=== PATIENT | female | born 1995 | race Caucasian/White ===

== ENCOUNTER 2018-01-19 19:46 | Emergency (ER) | payer MEDICAID, OTHER ==
--- NOTE | 2018-01-20 02:41 | EDM.PDOC ---
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 She states that part of the process is dipping a tray of dishes into a "leadlighter solution". She had some of this on her hand or glove and then rubbed her left eye. Did develop some mild burning discomfort of the RI after doing this. She states she flushd and irrigated the eye immediately with water. This occurred about 2 hours ago she's had no further I discomfort. She was advised to have this checked out due to the potentially caustic nature of the leadlighter solution. She does not wear contacts. She was not wearing eye protection at the time. - Related Data Allergies Allergy/AdvReac Type Severity Reaction Status Date / Time No Known Allergies Allergy Verified 10/27/15 21:01 Past Medical History - Past Health History Medical/Surgical History: Denies Medical/Surgical History ED ROS ENT - Review of Systems Review Of Systems: See Below Constitutional: Reports: No Symptoms HEENT: Reports: Eye Pain Respiratory: Denies: Shortness of Breath (Gone) Cardiovascular: Denies: Chest Pain GI/Abdominal: Denies: Nausea, Vomiting Musculoskeletal: Reports: No Symptoms Skin: Reports: Other (No burning discomfort of the periorbital tissue). Denies : Rash, Erythema Neurological: Denies: Dizziness, Headache ED EXAM, ENT - Physical Exam Exam: See Below General Appearance: Alert, No Apparent Distress Eye Exam: Bilateral Eye: PERRL (No conjunctival injection, no visible corneal injury) Ears: Normal External Exam Nose: Normal Inspection Mouth/Throat: Normal Inspection Head: Atraumatic Neck: Supple Respiratory/Chest: No Respiratory Distress Skin: Warm, Dry, Normal Color Course - Re-Assessments/Exams Free Text/Narrative Re-Assessment/Exam: 01/20/18 02:40 Her eye looked really good at time of exam, we did further irrigate with 250 mL normal saline. Departure - Departure Time of Disposition: 22:00 Disposition: Home, Self-Care 01 Clinical Impression: Chemical exposure of eye - Discharge Information Referrals: PCP,None [Primary Care Provider] -
== END 2018-01-20 01:18 | disposition home or self-care (01) ==
LOC: JD.ED 19:46
DX: Z77.098 Contact with and (suspected) exposure to other hazardous, chiefly nonmedicinal, chemicals (principal)
CPT/HCPCS: 99283

== ENCOUNTER 2020-11-06 01:17 | Inpatient (IN) | payer BC ==
[2020-11-06] MEDS ORDERED: Nalbuphine 10 MG/1 ML Vial IVPUSH PRN (02:13)
[2020-11-06] MEDS ORDERED: Sodium Chloride 0.9% 10 ML Syringe FLUSH PRN (02:13)
[2020-11-06] MEDS ORDERED: Oxytocin/Lactated Ringers 10 UNIT/1,000 ML BAG IV SCH (02:15)
[2020-11-06] MEDS: Calcium Carbonate 500 MG Tab.Chew PO PRN ×2 (04:25→16:16)
[2020-11-06] MEDS: Lactated Ringers 1,000 ML IV SCH ×4 (05:52→15:12)
[2020-11-06] MEDS ORDERED: ePHEDrine 50 MG/ML SDV IVPUSH PRN (06:16)
[2020-11-06] MEDS ORDERED: diphenhydrAMINE 50 MG/ML SDV IVPUSH PRN (06:16)
[2020-11-06] MEDS ORDERED: fentaNYL 100 MCG/2 ML SDV ONE (06:23)
--- NOTE | 2020-11-06 06:24 | PCM.PREANE ---
Preanesthetic Assessment - Procedure Proposed Procedure: Continuous labor epidural - Anesthesia/Transfusion/Family Hx Anesthesia History: Prior Anesthesia Without Reaction Transfusion History: No Prior Transfusion(s) - Review of Systems General: No Symptoms Pulmonary: No Symptoms Cardiovascular: No Symptoms Gastrointestinal: No Symptoms Neurological: No Symptoms Other: Reports: None - Physical Assessment Vital Signs: Last Vital Signs Temp 97.8 F 11/06/20 01:22 Pulse 89 11/06/20 01:22 Resp 16 11/06/20 01:22 BP 127/75 11/06/20 01:22 Pulse Ox 99 11/06/20 01:22 Height: 1.5 m Weight: 68.946 kg ASA Class: 2 Mental Status: Alert & Oriented x3 Airway Class: Mallampati = 2 Dentition: Reports: Normal Dentition Thyro-Mental Finger Breadths: 3 Mouth Opening Finger Breadths: 3 ROM/Head Extension: Full Lungs: Clear to Auscultation, Normal Respiratory Effort Cardiovascular: Regular Rate, Regular Rhythm - Lab Values: Laboratory Last Values WBC 16.98 K/mm3 (3.98-10.04) H 11/06/20 02:30 RBC 3.87 M/mm3 (3.98-5.22) L 11/06/20 02:30 Hgb 11.4 gm/dl (11.2-15.7) 11/06/20 02:30 Hct 34.7 % (34.1-44.9) 11/06/20 02:30 MCV 89.7 fl (79.4-94.8) 11/06/20 02:30 MCH 29.5 pg (25.6-32.2) 11/06/20 02:30 MCHC 32.9 g/dl (32.2-35.5) 11/06/20 02:30 RDW Std Deviation 42.5 fL (36.4-46.3) 11/06/20 02:30 Plt Count 210 K/mm3 (182-369) 11/06/20 02:30 MPV 11.1 fl (9.4-12.3) 11/06/20 02:30 Neut % (Auto) 72.3 % (34.0-71.1) H 11/06/20 02:30 Lymph % (Auto) 19.4 % (19.3-51.7) 11/06/20 02:30 [place] % (Auto) 7.6 % (4.7-12.5) 11/06/20 02:30 Eos % (Auto) 0.2 (0.7-5.8) L 11/06/20 02:30 Baso % (Auto) 0.1 % (0.1-1.2) 11/06/20 02:30 Neut # (Auto) 12.26 K/mm3 (1.56-6.13) H 11/06/20 02:30 Lymph # (Auto) 3.30 K/mm3 (1.18-3.74) 11/06/20 02:30 [place] # (Auto) 1.29 K/mm3 (0.24-0.36) H 11/06/20 02:30 Eos # (Auto) 0.04 K/mm3 (0.04-0.36) 11/06/20 02:30 Baso # (Auto) 0.02 K/mm3 (0.01-0.08) 11/06/20 02:30 SARS-CoV-2 RNA (ERIBERTO) Negative (NEGATIVE) 11/06/20 02:33 - Allergies Allergies/Adverse Reactions: Allergies Allergy/AdvReac Type Severity Reaction Status Date / Time No Known Allergies Allergy Verified 01/20/18 03:17 - Acknowledgements Anesthesia Type Planned: Epidural Pt an Appropriate Candidate for the Planned Anesthesia: Yes Alternatives and Risks of Anesthesia Discussed w Pt/Guardian: Yes Pt/Guardian Understands and Agrees with Anesthesia Plan: Yes PreAnesthesia Questionnaire - Past Health History Medical/Surgical History: Denies Medical/Surgical History HEENT History: Reports: Other (See Below) Other HEENT History: Pt wears glasses Cardiovascular History: Reports: None Respiratory History: Reports: None Gastrointestinal History: Reports: None Genitourinary History: Reports: None 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 Other OB/BYN History: SAB 08/2019 Musculoskeletal History: Reports: None Neurological History: Reports: None Psychiatric History: Reports: None Endocrine/Metabolic History: Reports: None Hematologic History: Reports: None Immunologic History: Reports: None Oncologic (Cancer) History: Reports: None Dermatologic History: Reports: None - Infectious Disease History Infectious Disease History: Reports: None - Past Surgical History Head Surgeries/Procedures: Reports: None HEENT Surgical History: Reports: Tonsillectomy - SUBSTANCE USE Tobacco Use Status *Q: Former Tobacco User Tobacco Use Within Last Twelve Months: Cigarettes Recreational Drug Use History: No - HOME MEDS Home Medications: Home Meds Pnv No.95/Ferrous Fum/Folic AC [ Vitamin Tablet] 1 each PO DAILY 11/06/20 [History] - CURRENT (IN HOUSE) MEDS Current Meds: Current Medications Calcium Carbonate/Glycine (Calcium Carbonate 500 Mg Tab.Chew) 1,000 mg PO Q2H PRN PRN Reason: Indigestion Last Admin: 11/06/20 04:25 Dose: 1,000 mg Documented by: Diphenhydramine HCl (Diphenhydramine 50 Mg/Ml Sdv) 25 mg IVPUSH Q6H PRN PRN Reason: pruritis Ephedrine Sulfate (Ephedrine 50 Mg/Ml Sdv) 5 mg IVPUSH ASDIRECTED PRN PRN Reason: Hypotension Fentanyl (Fentanyl 100 Mcg/2 Ml Sdv) 100 mcg EPIDUR Q3H PRN PRN Reason: Pain Fentanyl/Bupivacaine HCl (Bupivacaine/Fentanyl/Ns 100 Ml Bag) 100 ml EPIDUR ASDIRECTED PRN PRN Reason: Pain Lactated Ringer's (Ringers, Lactated) 1,000 mls @ 100 mls/hr IV ASDIRECTED NANCY Last Admin: 11/06/20 05:52 Dose: 999 mls/hr Documented by: Oxytocin/Lactated Ringer's (Pitocin In Lr 10 Units/1,000 Ml) 10 unit in 1,000 mls @ 500 mls/hr IV .CONTINUOUS NANCY Nalbuphine HCl (Nalbuphine 10 Mg/1 Ml Vial) 10 mg IVPUSH Q2H PRN PRN Reason: Pain Last Admin: 11/06/20 04:32 Dose: 10 mg Documented by: Sodium Chloride (Sodium Chloride 0.9% 10 Ml Syringe) 10 ml FLUSH ASDIRECTED PRN PRN Reason: Keep Vein Open
[2020-11-06] MEDS: fentaNYL 100 MCG/2 ML SDV EPIDUR PRN ×2 (06:29→09:34)
[2020-11-06] MEDS: Bupivacaine/fentaNYL/NS 100 ML Bag EPIDUR PRN ×2 (07:01→13:59)
--- NOTE | 2020-11-06 08:09 | PCM.LDHP ---
L&D History of Present Illness - General Date of Service: 11/06/20 Admit Problem/Dx: Patient Status Order with Admit Dx/Problem 11/06/20 01:22 Patient Status [ADT] Routine 11/06/20 02:13 Patient Status [ADT] Routine Admission Diagnosis/Problem Admission Diagnosis/Problem Source of Information: Patient History Limitations: Reports: No Limitations - History of Present Illness Introduction:: Cinda Beach is a GBS - B+ 25 year old female at 40-5 weeks gestation age (GURMEET 11/01/20) by 7 week US and LMP who presents today for signs of labor. She reports contractions that have been increasing in strength and frequency. She reports some leaking of fluid and notes that it is pink tinged, but denies bleeding. She reports good movement. Pain Score: 1 Present Illness Comments:: Cinda Beach is a GBS - B+ 25 year old female at 40-5 weeks gestation age (GURMEET 11/01/20) by 7 week US and LMP who presents today for signs of labor. Patient has received routine care and denies any complications during her . She received the Tdap vaccine on 08/08/20; she did not received the flu vaccine OBGYN History 08/2019: SAB G2: current labs: Blood type: B+ Antibody screen: Negative Rubella status: immune Hepatitis B surface antigen: unknown Hepatitis C: negative RPR: negative HIV: negative Gonorrhea: Negative Chlamydia: negative Anatomy US: 06/15/20 with follow up 07/14/20 Normal growth, ARJUN, placental position, anatomy One hour glucose tolerance test: 62 Second trimester hematocrit/hemoglobin: 12.2 Platelets: 240,000 GBS status: negative - Related Data Allergies/Adverse Reactions: Allergies Allergy/AdvReac Type Severity Reaction Status Date / Time No Known Allergies Allergy Verified 01/20/18 03:17 Home Medications: Home Meds Pnv No.95/Ferrous Fum/Folic AC [ Vitamin Tablet] 1 each PO DAILY 10/17 10/08 [History] Past Medical History - Past Health History Medical/Surgical History: Denies Medical/Surgical History HEENT History: Reports: Other (See Below) Other HEENT History: Pt wears glasses Cardiovascular History: Reports: None Respiratory History: Reports: None Gastrointestinal History: Reports: None Genitourinary History: Reports: None 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 Other OB/BYN History: SAB 08/2019 Musculoskeletal History: Reports: None Neurological History: Reports: None Psychiatric History: Reports: None Endocrine/Metabolic History: Reports: None Hematologic History: Reports: None Immunologic History: Reports: None Oncologic (Cancer) History: Reports: None Dermatologic History: Reports: None - Infectious Disease History Infectious Disease History: Reports: None - Past Surgical History Head Surgeries/Procedures: Reports: None HEENT Surgical History: Reports: Tonsillectomy Social & Family History - Family History Family Medical History: No Pertinent Family History - Tobacco Use Tobacco Use Status *Q: Former Tobacco User Packs/Tins Daily: 0.5 Used Tobacco, but Quit: Yes Month/Year Tobacco Last Used: 02/2020 - Caffeine Use Caffeine Use: Reports: Soda - Recreational Drug Use Recreational Drug Use: No H&P Review of Systems - Review of Systems: Review Of Systems: See Below General: Reports: No Symptoms HEENT: Reports: No Symptoms Pulmonary: Reports: No Symptoms Cardiovascular: Reports: No Symptoms Gastrointestinal: Reports: No Symptoms Genitourinary: Reports: No Symptoms Musculoskeletal: Reports: No Symptoms Skin: Reports: No Symptoms Psychiatric: Reports: No Symptoms Neurological: Reports: No Symptoms L&D Exam - Exam Exam: See Below - Vital Signs Vital Signs: Last Vital Signs Temp 97.8 F 11/06/20 01:22 Pulse 69 11/06/20 07:30 Resp 16 11/06/20 01:22 BP 124/55 L 11/06/20 07:30 Pulse Ox 100 11/06/20 07:00 Weight: 152 lb - OB Specific Contraction Intensity: Moderate to Strong Movement: Active Heart Tones: Present - Exam General: Alert, Oriented HEENT: Conjunctiva Clear, EOMI Lungs: Clear to Auscultation, Normal Respiratory Effort Cardiovascular: Regular Rate, Regular Rhythm GI/Abdominal Exam: Normal Bowel Sounds, Soft Extremities: Normal Inspection, Non-Tender, No Pedal Edema, Normal Capillary Refill Skin: Warm, Dry, Intact Psychiatric: Alert, Normal Affect, Normal Mood - Patient Data Lab Results Last 24 hrs: Laboratory Results - last 24 hr 11/06/20 11/06/20 Range/Units 02:30 02:33 WBC 16.98 H (3.98-10.04) K/mm3 RBC 3.87 L (3.98-5.22) M/mm3 Hgb 11.4 (11.2-15.7) gm/dl Hct 34.7 (34.1-44.9) % MCV 89.7 (79.4-94.8) fl MCH 29.5 (25.6-32.2) pg MCHC 32.9 (32.2-35.5) g/dl RDW Std Deviation 42.5 (36.4-46.3) fL Plt Count 210 (182-369) K/mm3 MPV 11.1 (9.4-12.3) fl Neut % (Auto) 72.3 H (34.0-71.1) % Lymph % (Auto) 19.4 (19.3-51.7) % [place] % (Auto) 7.6 (4.7-12.5) % Eos % (Auto) 0.2 L (0.7-5.8) Baso % (Auto) 0.1 (0.1-1.2) % Neut # (Auto) 12.26 H (1.56-6.13) K/mm3 Lymph # (Auto) 3.30 (1.18-3.74) K/mm3 [place] # (Auto) 1.29 H (0.24-0.36) K/mm3 Eos # (Auto) 0.04 (0.04-0.36) K/mm3 Baso # (Auto) 0.02 (0.01-0.08) K/mm3 SARS-CoV-2 RNA (ERIBERTO) Negative (NEGATIVE) Result Diagrams: 11/06/20 02:30 - Problem List (1) 40 weeks gestation of SNOMED Code(s): 56418330 ICD Code: Z3A.40 - 40 WEEKS GESTATION OF Status: Acute Current Visit: Yes Problem List Initiated/Reviewed/Updated: Yes Orders Last 24hrs: Active Orders 24 hr Category Date Time Status Patient Status [ADT] Routine ADT 11/06/20 02:13 Active Activity as Tolerated [RC] PFP Care 11/06/20 02:13 Active Communication Order [RC] ASDIRECTED Care 11/06/20 02:13 Active Heart Tones [RC] ASDIRECTED Care 11/06/20 02:13 Active Notify Provider [RC] ASDIRECTED Care 11/06/20 06:16 Active Notify Provider [RC] PFP Care 11/06/20 02:13 Active Notify Provider [RC] PRN Care 11/06/20 02:13 Active Peripheral IV Care [RC] Q4HR Care 11/06/20 02:13 Active Vital Signs [RC] PER UNIT ROUTINE Care 11/06/20 01:22 Active Regular Diet [DIET] Diet 11/06/20 Breakfast Active HEPATITIS B SURFACE AG [CHEM] Routine Lab 11/06/20 02:30 Received RAPID PLASMA REAGIN,RPR [CHEM] Routine Lab 11/06/20 02:30 Received Bupivacaine/fentaNYL/NS [fentaNYL/Bupivacaine/NS 2 MCG- Med 11/06/20 06:16 Active 0.125% 100 ML] 100 ml EPIDUR ASDIRECTED PRN Calcium Carbonate [Tums] Med 11/06/20 03:56 Active 1,000 mg PO Q2H PRN Lactated Ringers [Ringers, Lactated] 1,000 ml Med 11/06/20 02:15 Active IV ASDIRECTED Nalbuphine [Nubain] Med 11/06/20 02:13 Active 10 mg IVPUSH Q2H PRN Oxytocin/Lactated Ringers [Pitocin in LR 10 Units/1,000 Med 11/06/20 02:15 Active ML] 10 unit in 1,000 ml IV .CONTINUOUS Sodium Chloride 0.9% [Saline Flush] Med 11/06/20 02:13 Active 10 ml FLUSH ASDIRECTED PRN diphenhydrAMINE [Benadryl] Med 11/06/20 06:16 Active 25 mg IVPUSH Q6H PRN ePHEDrine [ePHEDrine sulfate] Med 11/06/20 06:16 Active 5 mg IVPUSH ASDIRECTED PRN fentaNYL [Sublimaze] Med 11/06/20 06:16 Active 100 mcg EPIDUR Q3H PRN Electronic Heart Tones Ext w TOCO [WOMSER] Oth 11/06/20 02:13 Ordered Routine Electronic Heart Tones Internal [WOMSER] Per Unit Oth 11/06/20 02:13 Ordered Routine Peripheral IV Insertion Adult [OM.PC] Routine Oth 11/06/20 02:13 Ordered Resuscitation Status Routine Resus Stat 11/06/20 01:22 Ordered Medication Orders Calcium Carbonate/Glycine (Calcium Carbonate 500 Mg Tab.Chew) 1,000 mg PO Q2H PRN PRN Reason: Indigestion Last Admin: 11/06/20 04:25 Dose: 1,000 mg Documented by: PENNY Diphenhydramine HCl (Diphenhydramine 50 Mg/Ml Sdv) 25 mg IVPUSH Q6H PRN PRN Reason: pruritis Ephedrine Sulfate (Ephedrine 50 Mg/Ml Sdv) 5 mg IVPUSH ASDIRECTED PRN PRN Reason: Hypotension Fentanyl (Fentanyl 100 Mcg/2 Ml Sdv) 100 mcg EPIDUR Q3H PRN PRN Reason: Pain Last Admin: 11/06/20 06:29 Dose: 100 mcg Documented by: PENNY Fentanyl/Bupivacaine HCl (Bupivacaine/Fentanyl/Ns 100 Ml Bag) 100 ml EPIDUR ASDIRECTED PRN PRN Reason: Pain Last Admin: 11/06/20 07:01 Dose: 100 ml Documented by: PENNY Lactated Ringer's (Ringers, Lactated) 1,000 mls @ 100 mls/hr IV ASDIRECTED NANCY Last Infusion: 11/06/20 07:37 Dose: 100 mls/hr Documented by: Admin: 11/06/20 06:34 Dose: 999 mls/hr Documented by: Infusion: 11/06/20 06:34 Dose: 999 mls/hr Documented by: Admin: 11/06/20 05:52 Dose: 999 mls/hr Documented by: PENNY Oxytocin/Lactated Ringer's (Pitocin In Lr 10 Units/1,000 Ml) 10 unit in 1,000 mls @ 500 mls/hr IV .CONTINUOUS NANCY Nalbuphine HCl (Nalbuphine 10 Mg/1 Ml Vial) 10 mg IVPUSH Q2H PRN PRN Reason: Pain Last Admin: 11/06/20 04:32 Dose: 10 mg Documented by: PENNY Sodium Chloride (Sodium Chloride 0.9% 10 Ml Syringe) 10 ml FLUSH ASDIRECTED PRN PRN Reason: Keep Vein Open Assessment/Plan Comment:: Cinda Beach is a GBS - B+ 25 year old female at 40-5 weeks gestation age (GURMEET 11/01/20) by 7 week US and LMP who presents today for signs of labor. She reports contractions that have been increasing in strength and frequency. She reports some leaking of fluid and notes that it is pink tinged, but denies bleeding. 1. Active labor - augmentation of labor with AROM, pitocin as indicated 2. Continuous monitoring 3. GBS - 4. B+ with negative antibody screen 5. Rubella immune 6. Activity as tolerated 7. Small amounts of regular diet 8. Epidural in place 9. Plans to breastfeed 10. Anticipate vaginal delivery unless otherwise indicated
[2020-11-06] MEDS ORDERED: Bupivacaine 0.25% 10 ML SDV ONE (11:00)
[2020-11-06] MEDS ORDERED: Lidocaine 1.5% with EPINEPHrine 1:200,000 5 ML Amp ONE (11:00)
--- NOTE | 2020-11-06 19:01 | PCM.SN.2 ---
- Free Text/Narrative Note: Delivery note: Cinda Beach is a GBS - B+ 25 year old female patient of Dr. Baker who is presently at 40-5 weeks gestation age (GURMEET 11/01/20) by 7 week US and LMP and who presented today for signs of labor. The patient progressed in labor and became completely dilated at approximately 1320 hrs. She underwent epidural for labor analgesia with good results. She began pushing and delivered a viable, martinez, female infant with Apgars of 8 and 9, a length of 19 inches and a weight of 2990 g (6 pounds 9 ounces) at 1646 hrs. on 11/06/2020. She had a midline episiotomy but no extensions or lacerations otherwise. The baby was placed on mom's abdomen and nose and mouth were bulb suctioned. The cord was allowed to pulsate for approximately 1 minute then was clamped x2 and cut by the baby's father. Pitocin was increased to 500cc/h with routine Pitocin solution per protocol. This to facilitate increase in uterine tone to assist in reducing risk of uterine bleeding. Cord blood is obtained. The umbilical cord had 3 vessels. The placenta delivered at 1652 hrs. in a Tony presentation. Midline episiotomy was repaired with 3-0 Monocryl suture in a routine fashion. Epidural analgesia was used for perineal anesthesia with patient tolerated the procedure well. Estimated blood loss was approximately 300 cc. Condition good. Patient plans to breast-feed.
[2020-11-06] MEDS ORDERED: Witch Hazel Medicated Pads 40/Jar TOP PRN (19:16)
[2020-11-06] MEDS ORDERED: Benzocaine/Menthol 20%-0.5% Spray 56 GM Canister TOP PRN (19:16)
[2020-11-06] MEDS: Ibuprofen 600 MG Tab PO PRN (22:22)
[2020-11-06] MEDS: Docusate Sodium 100 MG Cap PO PRN (22:30)
[2020-11-07] MEDS: Ibuprofen 600 MG Tab PO PRN ×3 (04:00→19:30)
--- NOTE | 2020-11-07 07:37 | PCM48HPAN ---
Post Anesthesia Note - EVALUATION WITHIN 48HRS OF ANESTHETIC Vital Signs in Normal Range: Yes Patient Participated in Evaluation: Yes Respiratory Function Stable: Yes Airway Patent: Yes Cardiovascular Function Stable: Yes Hydration Status Stable: Yes Pain Control Satisfactory: Yes Nausea and Vomiting Control Satisfactory: Yes Mental Status Recovered: Yes Vital Signs: Last Vital Signs Temp 36.9 C 11/07/20 03:57 Pulse 76 11/07/20 03:57 Resp 14 11/07/20 03:57 BP 109/68 11/07/20 03:57 Pulse Ox 98 11/07/20 03:57
[2020-11-07] MEDS: Docusate Sodium 100 MG Cap PO PRN ×2 (09:23→20:35)
--- NOTE | 2020-11-07 10:12 | PCM.PNPP ---
- General Info Date of Service: 11/07/20 Subjective Update: Doing well. No complaints. - Review of Systems General: Reports: No Symptoms HEENT: Reports: No Symptoms Pulmonary: Reports: No Symptoms Cardiovascular: Reports: No Symptoms Gastrointestinal: Reports: No Symptoms Genitourinary: Reports: No Symptoms Musculoskeletal: Reports: No Symptoms Skin: Reports: No Symptoms Neurological: Reports: No Symptoms Psychiatric: Reports: No Symptoms - General Info Date of Service: 11/07/20 - Patient Data Vital Signs - Most Recent: Last Vital Signs Temp 36.9 C 11/07/20 08:45 Pulse 105 H 11/07/20 08:45 Resp 18 11/07/20 08:45 BP 118/75 11/07/20 08:45 Pulse Ox 99 11/07/20 08:45 Weight - Most Recent: 68.946 kg I&O - Last 24 Hours: Intake & Output 11/06/20 11/07/20 11/07/20 22:59 06:59 14:59 Intake Total 5420 Output Total 60 Balance 5360 Lab Results - Last 24 Hours: Laboratory Results - last 24 hr 11/06/20 Range/Units 02:30 RPR Non-reactive (NONREACTIVE) Med Orders - Current: Current Medications Acetaminophen (Acetaminophen 325 Mg Tab) 650 mg PO Q4H PRN PRN Reason: mild pain or fever Benzocaine/Menthol (Benzocaine/Menthol 20%-0.5% [place] 56 Gm Canister) 0 gm TOP ASDIRECTED PRN PRN Reason: Perineal Comfort Measure Last Admin: 11/06/20 20:23 Dose: 1 can Documented by: Docusate Sodium (Docusate Sodium 100 Mg Cap) 100 mg PO BID PRN PRN Reason: Constipation Last Admin: 11/07/20 09:23 Dose: 100 mg Documented by: Ibuprofen (Ibuprofen 600 Mg Tab) 600 mg PO Q4H PRN PRN Reason: Mild pain or fever Last Admin: 11/07/20 09:22 Dose: 600 mg Documented by: Sofi Diaz (Sofi Diaz Medicated Pads 40/Jar) 1 pad TOP ASDIRECTED PRN PRN Reason: Perineal Comfort Measure Last Admin: 11/06/20 20:23 Dose: 1 tub Documented by: Discontinued Medications Calcium Carbonate/Glycine (Calcium Carbonate 500 Mg Tab.Chew) 1,000 mg PO Q2H PRN PRN Reason: Indigestion Last Admin: 11/06/20 16:16 Dose: 1,000 mg Documented by: Diphenhydramine HCl (Diphenhydramine 50 Mg/Ml Sdv) 25 mg IVPUSH Q6H PRN PRN Reason: pruritis Ephedrine Sulfate (Ephedrine 50 Mg/Ml Sdv) 5 mg IVPUSH ASDIRECTED PRN PRN Reason: Hypotension Fentanyl (Fentanyl 100 Mcg/2 Ml Sdv) 100 mcg EPIDUR Q3H PRN PRN Reason: Pain Last Admin: 11/06/20 09:34 Dose: 100 mcg Documented by: Fentanyl (Fentanyl 100 Mcg/2 Ml Sdv) Confirm Administered Dose 100 mcg .ROUTE .[facility] ONE Stop: 11/06/20 06:24 Last Admin: 11/06/20 07:02 Dose: Not Given Documented by: Fentanyl/Bupivacaine HCl (Bupivacaine/Fentanyl/Ns 100 Ml Bag) 100 ml EPIDUR ASDIRECTED PRN PRN Reason: Pain Last Admin: 11/06/20 13:59 Dose: 100 ml Documented by: Lactated Ringer's (Ringers, Lactated) 1,000 mls @ 100 mls/hr IV ASDIRECTED NANCY Last Admin: 11/06/20 15:12 Dose: 100 mls/hr Documented by: Oxytocin/Lactated Ringer's (Pitocin In Lr 10 Units/1,000 Ml) 10 unit in 1,000 mls @ 500 mls/hr IV .CONTINUOUS NANCY Last Admin: 11/06/20 16:41 Dose: 12 mls/hr Documented by: Nalbuphine HCl (Nalbuphine 10 Mg/1 Ml Vial) 10 mg IVPUSH Q2H PRN PRN Reason: Pain Last Admin: 11/06/20 04:32 Dose: 10 mg Documented by: Sodium Chloride (Sodium Chloride 0.9% 10 Ml Syringe) 10 ml FLUSH ASDIRECTED PRN PRN Reason: Keep Vein Open - Infant Interaction Disposition, : in Room with Family Support Person: Significant Other - Recovery Exam Fundal Tone: Firm Fundal Level: 1 Fingerbreadths Below Umbilicus Fundal Placement: Midline Lochia Amount: Small Lochia Color: Rubra/Red Perineum Description: Intact, Minimal Bruising/Swelling Episiotomy/Laceration: Approximated Bladder Status: Voiding Urinary Elimination: Voided - Exam General: Alert, Oriented HEENT: Pupils Equal Neck: Supple Lungs: Clear to Auscultation, Normal Respiratory Effort Cardiovascular: Regular Rate, Regular Rhythm GI/Abdominal Exam: Normal Bowel Sounds, Soft, Non-Tender, No Organomegaly, No Distention, No Abnormal Bruit, No Mass, Pelvis Stable Extremities: Normal Inspection, Normal Range of Motion, Non-Tender, No Pedal Edema, Normal Capillary Refill Skin: Warm Neurological: No New Focal Deficit - Problem List Review Problem List Initiated/Reviewed/Updated: Yes - Assessment Assessment:: Doing well. PPD1. No complaints. - Plan Plan:: Doing well. PPD1 No complaints. Recovering well. Minimal bleeding. Home tomorrow.
[2020-11-07] MEDS: Acetaminophen 325 MG Tab PO PRN ×2 (14:55→20:35)
[2020-11-08] MEDS: Ibuprofen 600 MG Tab PO PRN ×2 (02:00→06:00)
[2020-11-08 02:31] VITALS: BP 118/81
--- NOTE | 2020-11-08 08:47 | PCM.DCSUM1 ---
Discharge Summary - Hospital Course Free Text/Narrative:: [facility] Provider Simple Note Patient Name: CARLOS BENZ Date of : [birth year] Patient Status: Inpatient Attending Provider: Jose Rebolledo Date: 11/06/20 18:57 Initialization Date: 11/06/20 18:57 - Free Text/Narrative Note: Delivery note: Carlos Benz is a GBS - B+ 25 year old female patient of Dr. Baker who is presently at 40-5 weeks gestation age (GURMEET 11/01/20) by 7 week US and LMP and who presented today for signs of labor. The patient progressed in labor and became completely dilated at approximately 1320 hrs. She underwent epidural for labor analgesia with good results. She began pushing and delivered a viable, martinez, female infant with Apgars of 8 and 9, a length of 19 inches and a weight of 2990 g (6 pounds 9 ounces) at 1646 hrs. on 11/06/2020. She had a midline episiotomy but no extensions or lacerations otherwise. The baby was placed on mom's abdomen and nose and mouth were bulb suctioned. The cord was allowed to pulsate for approximately 1 minute then was clamped x2 and cut by the baby's father. Pitocin was increased to 500cc/h with routine Pitocin solution per protocol. This to facilitate increase in uterine tone to assist in reducing risk of uterine bleeding. Cord blood is obtained. The umbilical cord had 3 vessels. The placenta delivered at 1652 hrs. in a Tony presentation. Midline episiotomy was repaired with 3-0 Monocryl suture in a routine fashion. Epidural analgesia was used for perineal anesthesia with patient tolerated the procedure well. Estimated blood loss was approximately 300 cc. Condition good. Patient plans to breast-feed. HPI Initial Comments: [facility] Provider Simple Note Patient Name: CARLOS BENZ Date of : [birth year] Patient Status: Inpatient Attending Provider: Jose Rebolledo Date: 11/06/20 18:57 Initialization Date: 11/06/20 18:57 - Free Text/Narrative Note: Delivery note: Carlos Benz is a GBS - B+ 25 year old female patient of Dr. Baker who is presently at 40-5 weeks gestation age (GURMEET 11/01/20) by 7 week US and LMP and who presented today for signs of labor. The patient progressed in labor and became completely dilated at approximately 1320 hrs. She underwent epidural for labor analgesia with good results. She began pushing and delivered a viable, martinez, female infant with Apgars of 8 and 9, a length of 19 inches and a weight of 2990 g (6 pounds 9 ounces) at 1646 hrs. on 11/06/2020. She had a midline episiotomy but no extensions or lacerations otherwise. The baby was placed on mom's abdomen and nose and mouth were bulb suctioned. The cord was allowed to pulsate for approximately 1 minute then was clamped x2 and cut by the baby's father. Pitocin was increased to 500cc/h with routine Pitocin solution per protocol. This to facilitate increase in uterine tone to assist in reducing risk of uterine bleeding. Cord blood is obtained. The umbilical cord had 3 vessels. The placenta delivered at 1652 hrs. in a Tony presentation. Midline episiotomy was repaired with 3-0 Monocryl suture in a routine fashion. Epidural analgesia was used for perineal anesthesia with patient tolerated the procedure well. Estimated blood loss was approximately 300 cc. Condition good. Patient plans to breast-feed. Brief History: [facility] . Provider Simple Note. [id number]. Date of : [birth year]Patient Status: Inpatient. Attending Provider: Jose Rebolledo Number: [id number]. Date: 11/06/20 18:57Initialization Date: 11/06/20 18:57. - Free Text/Narrative. Note: Delivery note: Carlos Benz is a GBS - B+ 25 year old female patient of Dr. Baker who is presently at 40-5 weeks gestation age (GURMEET 11/01/20) by 7 week US and LMP and who presented today for signs of labor. The patient progressed in labor and became completely dilated at approximately 1320 hrs. She underwent epidural for labor analgesia with good results. She began pushing and delivered a viable, martinez, female with Apgars of 8 and 9, a length of 19 inches and a weight of 2990 g (6 pounds 9 ounces) at 1646 hrs. on 11/06/2020. She had a midline episiotomy but no extensions or lacerations otherwise. The baby was placed on mom's abdomen and nose and mouth were bulb suctioned. The cord was allowed to pulsate for approximately 1 minute then was clamped x2 and cut by the baby's father. Pitocin was increased to 500cc/h with routine Pitocin solution per protocol. This to facilitate increase in uterine tone to assist in reducing risk of uterine bleeding. Cord blood is obtained. The umbilical cord had 3 vessels. The placenta delivered at 1652 hrs. in a Tony presentation. Midline episiotomy was repaired with 3-0 Monocryl suture in a routine fashion. Epidural analgesia was used for perineal anesthesia with patient tolerated the procedure well. Estimated blood loss was approximately 300 cc. Condition good. Patient plans to breast-feed. Diagnosis: Stroke: No - Discharge Data Discharge Date: 11/08/20 Discharge Disposition: Home, Self-Care 01 Condition: Good - Referral to Home Health Primary Care Physician: Shae Baker MD - Discharge Diagnosis/Problem(s) (1) Encounter for full-term uncomplicated delivery SNOMED Code(s): 181213763 ICD Code: O80 - ENCOUNTER FOR FULL-TERM UNCOMPLICATED DELIVERY Status: Acute Current Visit: Yes (2) 40 weeks gestation of SNOMED Code(s): 60335565 ICD Code: Z3A.40 - 40 WEEKS GESTATION OF Status: Acute Current Visit: Yes - Patient Summary/Data Complications: none Consults: none Hospital Course: uneventful - Patient Instructions Diet: Usual Diet as Tolerated Driving: Do Not Drive (x2 days) Showering/Bathing: May Shower Notify Provider of: Fever, Increased Pain, Swelling and Redness, Drainage, Nausea and/or Vomiting - Discharge Plan *PRESCRIPTION DRUG MONITORING PROGRAM REVIEWED*: Not Applicable *COPY OF PRESCRIPTION DRUG MONITORING REPORT IN PATIENT BALA: Not Applicable Home Medications: Home Meds Pnv No.95/Ferrous Fum/Folic AC [ Vitamin Tablet] 1 each PO DAILY 11/06/20 [History] Acetaminophen [Tylenol] 650 mg PO Q6H PRN tablet 11/08/20 [Rx] Docusate Sodium [Colace] 100 mg PO BID PRN cap 11/08/20 [Rx] Ibuprofen [Motrin] 600 mg PO Q6H PRN tablet 11/08/20 [Rx] witch Emily [Tucks] 1 pad TOP ASDIRECTED PRN pad 11/08/20 [Rx] Referrals: Shae Baker MD [Primary Care Provider] - (Patient will call for appointment) - Discharge Summary/Plan Comment DC Time >30 min.: No - Patient Data Vitals - Most Recent: Last Vital Signs Temp 97.2 F 11/08/20 02:02 Pulse 63 11/08/20 02:02 Resp 16 11/08/20 02:02 BP 118/81 11/08/20 02:02 Pulse Ox 99 11/08/20 02:02 Weight - Most Recent: 152 lb I&O - Last 24 hours: Intake & Output 11/07/20 11/08/20 11/08/20 22:59 06:59 14:59 Intake Total 530 Balance 530 Med Orders - Current: Current Medications Acetaminophen (Acetaminophen 325 Mg Tab) 650 mg PO Q4H PRN PRN Reason: mild pain or fever Last Admin: 11/07/20 20:35 Dose: 650 mg Documented by: Benzocaine/Menthol (Benzocaine/Menthol 20%-0.5% [place] 56 Gm Canister) 0 gm TOP ASDIRECTED PRN PRN Reason: Perineal Comfort Measure Last Admin: 11/06/20 20:23 Dose: 1 can Documented by: Docusate Sodium (Docusate Sodium 100 Mg Cap) 100 mg PO BID PRN PRN Reason: Constipation Last Admin: 11/07/20 20:35 Dose: 100 mg Documented by: Ibuprofen (Ibuprofen 600 Mg Tab) 600 mg PO Q4H PRN PRN Reason: Mild pain or fever Last Admin: 11/08/20 06:00 Dose: 600 mg Documented by: Witkayode Garciael (Witch Emily Medicated Pads 40/Jar) 1 pad TOP ASDIRECTED PRN PRN Reason: Perineal Comfort Measure Last Admin: 11/06/20 20:23 Dose: 1 tub Documented by: Discontinued Medications Calcium Carbonate/Glycine (Calcium Carbonate 500 Mg Tab.Chew) 1,000 mg PO Q2H PRN PRN Reason: Indigestion Last Admin: 11/06/20 16:16 Dose: 1,000 mg Documented by: Diphenhydramine HCl (Diphenhydramine 50 Mg/Ml Sdv) 25 mg IVPUSH Q6H PRN PRN Reason: pruritis Ephedrine Sulfate (Ephedrine 50 Mg/Ml Sdv) 5 mg IVPUSH ASDIRECTED PRN PRN Reason: Hypotension Fentanyl (Fentanyl 100 Mcg/2 Ml Sdv) 100 mcg EPIDUR Q3H PRN PRN Reason: Pain Last Admin: 11/06/20 09:34 Dose: 100 mcg Documented by: Fentanyl (Fentanyl 100 Mcg/2 Ml Sdv) Confirm Administered Dose 100 mcg .ROUTE .[facility] Stop: 11/06/20 06:24 Last Admin: 11/06/20 07:02 Dose: Not Given Documented by: Fentanyl/Bupivacaine HCl (Bupivacaine/Fentanyl/Ns 100 Ml Bag) 100 ml EPIDUR ASDIRECTED PRN PRN Reason: Pain Last Admin: 11/06/20 13:59 Dose: 100 ml Documented by: Lactated Ringer's (Ringers, Lactated) 1,000 mls @ 100 mls/hr IV ASDIRECTED NANCY Last Admin: 11/06/20 15:12 Dose: 100 mls/hr Documented by: Oxytocin/Lactated Ringer's (Pitocin In Lr 10 Units/1,000 Ml) 10 unit in 1,000 mls @ 500 mls/hr IV .CONTINUOUS NANCY Last Admin: 11/06/20 16:41 Dose: 12 mls/hr Documented by: Nalbuphine HCl (Nalbuphine 10 Mg/1 Ml Vial) 10 mg IVPUSH Q2H PRN PRN Reason: Pain Last Admin: 11/06/20 04:32 Dose: 10 mg Documented by: Sodium Chloride (Sodium Chloride 0.9% 10 Ml Syringe) 10 ml FLUSH ASDIRECTED PRN PRN Reason: Keep Vein Open - Exam General: Reports: Alert, Oriented HEENT: Reports: Pupils Equal, Pupils Reactive, Mucous Membr. Moist/[place] Neck: Reports: Supple Lungs: Reports: Clear to Auscultation, Normal Respiratory Effort Cardiovascular: Reports: Regular Rate, Regular Rhythm GI/Abdominal Exam: Normal Bowel Sounds, Soft, Non-Tender (Female) Exam: Normal External Exam Extremities: Normal Inspection, Non-Tender, No Pedal Edema, Normal Capillary Refill Skin: Reports: Warm, Dry, Intact Wound/Incisions: Reports: Healing Well Neurological: Reports: No New Focal Deficit Psy/Mental Status: Reports: Alert, Normal Affect, Normal Mood
[2020-11-08 13:01] VITALS: PULSE 152
== END 2020-11-08 12:55 | disposition home or self-care (01) | DRG 560 ==
LOC: JD.OBCHECK 01:17 → JD.OB 01:20 → JD.OBCHECK 02:12 → JD.OB 02:13 → OBSVTOIN 16:46 → JD.OB 16:47
PROVIDERS: ADMIT Obstetrics & Gynecology; ATTEND Obstetrics & Gynecology
PROC: 10E0XZZ Delivery of Products of Conception, External Approach (ICD-10-PCS; principal; 2020-11-06)
PROC: 0W8NXZZ Division of Female Perineum, External Approach (ICD-10-PCS; 2020-11-06)
PROC: 3E0R3BZ Introduction of Anesthetic Agent into Spinal Canal, Percutaneous Approach (ICD-10-PCS; 2020-11-06)
DX: O48.0 Post-term pregnancy (principal); Z3A.40 40 weeks gestation of pregnancy; Z37.0 Single live birth; Z87.891 Personal history of nicotine dependence; Z20.822 Contact with and (suspected) exposure to COVID-19
CPT/HCPCS: 01967; 36415; 51702; 59025; 59409; 85025; 86592; 87340; A9270-GY; J2300; J2590; J3010; J3490; J7120; U0002